=== PATIENT | female | born 1945 | race Caucasian/White ===

== ENCOUNTER 2016-10-28 09:16 | Inpatient (IN) | payer OTHER ==
[2016-10-25 15:05] VITALS: BMI 37.0
--- NOTE | 2016-10-25 15:41 | PAT Medication Instructions ---
Service Date Oct 25, 2016. Current Home Medication List Alprazolam (Alprazolam), 0.5 MG PO PRN Celecoxib (CeleBREX), 200 MG PO BID Cholecalciferol (Vitamin D3), 5,000 TAB PO QAM Duloxetine Hcl (Cymbalta), 60 MG PO QAM Ferrous Sulfate (Kp Ferrous Sulfate), 1 TAB PO BID Hydrocodone/Acetaminophen 7.5MG/325MG ([place] 7.5MG/325MG), 1 TAB PO PRN PRN for Pain Levothyroxine Sodium (Levothyroxine Sodium), 1 TAB PO QAM Liraglutide (Victoza), 1.8 ML INJ QAM Metformin Hcl (Glucophage), 1,000 MG PO QAM Metformin Hcl (Glucophage), 500 MG PO HS Metoprolol Tartrate (Lopressor) (Lopressor), 100 MG PO BID Oxycodone/Acetaminophen 5MG/325MG (Percocet 5MG/325MG), 1 TABLET PO Q4H PRN for Pain Pregabalin (Lyrica), 150 MG PO TID Quinapril Hcl (Quinapril Hcl), 1 TAB PO QAM Ranitidine (Zantac), 150 MG PO BID Zafirlukast (Zafirlukast), 20 MG PO BID [Calcium Zinc], 1 TAB PO HS [Oxybutynin], 0.5 TAB PO HS Medication Instructions For Your Scheduled Surgery - Check with surgeon for instructions: Celecoxib (CeleBREX), 200 MG PO BID Zafirlukast (Zafirlukast), 20 MG PO BID - Hold the following medications 48 hours prior to surgery: Metformin Hcl (Glucophage), 1,000 MG PO QAM Metformin Hcl (Glucophage), 500 MG PO HS - Hold the following medications the morning of surgery: Quinapril Hcl (Quinapril Hcl), 1 TAB PO QAM Ranitidine (Zantac), 150 MG PO BID Ferrous Sulfate (Kp Ferrous Sulfate), 1 TAB PO BID Cholecalciferol (Vitamin D3), 5,000 TAB PO QAM - Take the following medications the morning of surgery with a sip of water: Pregabalin (Lyrica), 150 MG PO TID Oxycodone/Acetaminophen 5MG/325MG (Percocet 5MG/325MG), 1 TABLET PO Q4H PRN for Pain (okay ot take up to 4 hours prior to surgery if needed) Hydrocodone/Acetaminophen 7.5MG/325MG ([place] 7.5MG/325MG), 1 TAB PO PRN PRN for Pain (okay ot take up to 4 hours prior to surgery if needed) Metoprolol Tartrate (Lopressor) (Lopressor), 100 MG PO BID Liraglutide (Victoza), 1.8 ML INJ QAM Levothyroxine Sodium (Levothyroxine Sodium), 1 TAB PO QAM Duloxetine Hcl (Cymbalta), 60 MG PO QAM Alprazolam (Alprazolam), 0.5 MG PO PRN - Take the following medications as scheduled the night before surgery: [Calcium Zinc], 1 TAB PO HS [Oxybutynin], 0.5 TAB PO HS Ranitidine (Zantac), 150 MG PO BID Pregabalin (Lyrica), 150 MG PO TID Oxycodone/Acetaminophen 5MG/325MG (Percocet 5MG/325MG), 1 TABLET PO Q4H PRN for Pain Hydrocodone/Acetaminophen 7.5MG/325MG ([place] 7.5MG/325MG), 1 TAB PO PRN PRN for Pain Metoprolol Tartrate (Lopressor) (Lopressor), 100 MG PO BID Ferrous Sulfate (Kp Ferrous Sulfate), 1 TAB PO BID Alprazolam (Alprazolam), 0.5 MG PO PRN Zafirlukast (Zafirlukast), 20 MG PO BID If you have any questions please call us at [phone] or [phone] or [phone]
[2016-10-25 16:21] LABS: BASO % 0.5 %; BASO ABS # 0.03 K/uL (0-0.2); COMPLETE YES; EOS % 5.9 %; HEMATOCRIT 30.4 % (37-47); IG% 0.4 %; LYMPH % 19.3 %; LYMPH ABS # 1.08 K/uL (1.2-3.4); MEAN CELL VOLUME 87.9 fL (80-100); MEAN CORPUSCULAR HEMOGLOBIN 26.6 pg (25-34); MEAN CORPUSCULAR HGB CONC 30.3 g/dl (32-36); MONO % 10.6 %; NEUT % 63.3 %; PLATELET COUNT 293 K/uL (130-400); RED BLOOD COUNT 3.46 M/uL (4.2-5.4); WHITE BLOOD COUNT 5.59 K/uL (4.8-10.8)
[2016-10-25 16:28] LABS: URINE APPEARANCE CLOUDY (CLEAR); URINE BILIRUBIN NEG (NEG); URINE COLOR DK YELLOW; URINE EPITHELIAL CELL AUTO >30 /lpf (0-5); URINE NITRITE POS (NEG); URINE SPECIFIC GRAVITY 1.027 (1.000-1.030); UROBILINOGEN NEG (NEG)
[2016-10-25 16:30] LABS: PROTHROMBIN TIME (PATIENT) 10.7 SECONDS (9.0-12.0)
--- NOTE | 2016-10-25 16:31 | DIAGNOSTIC IMAGING REPORT ---
CHEST PREADMISSION(PA/LAT) CLINICAL HISTORY: PAT preoperative evaluation COMPARISON STUDY: No previous studies for comparison. FINDINGS: The bones soft tissues and hemidiaphragms are normal. The cardiomediastinal silhouette is normal. The lungs are clear. The pulmonary vasculature is normal. IMPRESSION: Negative chest. The above report was generated using voice recognition software. It may contain grammatical, syntax or spelling errors. Electronically signed by: Brain Simmons M.D. 10/25/2016 4:30 PM Dictated Date/Time: 10/25/2016 4:30 PM
[2016-10-25 16:34] LABS: MANUAL MICROSCOPIC REQUIRED? NO; REVIEW REQ? YES
[2016-10-26 05:41] LABS: ESTIMATED AVERAGE GLUCOSE 171 mg/dl; HA1C FLAG Normal (Normal)
--- NOTE | 2016-10-26 17:02 | History and Physical ---
History & Physical Date Oct 26, 2016. Chief Complaint Left shoulder pain History of Present Illness The patient is a 71 year old female with complaints of Left shoulder pain. She was being treated conservatively for a periprosthetic fracture of her left humerus when there was displacement. This requires surgical intervention. She would like to proceed with a Left ORIF periprosthetic humerus fracture. Past Medical/Surgical History PMHx: 1. hypertension 2. asthma 3. COPD 4. Sleep Apnea 5. Anxiety 6. SOB walking upstairs 7. IDDM 8. Hypothyroidism 9. GERD 10. H/O kidney stones Additional History Hepatic Disease: No Endocrine Disorder: Yes Kidney Disease: No Hypertension: Yes Heart Disease: No Bleeding Tendencies: No Infectious Diseases: No Allergies Coded Allergies: Grape (Verified Allergy, Unknown, RASH, 10/25/16) Midazolam (Verified Allergy, Unknown, FEVER ITCHING, 10/25/16) [place] (Verified Allergy, Unknown, RASH, 10/25/16) Penicillins (Verified Allergy, Unknown, RASH, 10/25/16) Sulfamethoxazole w/Trimethoprim (Verified Allergy, Unknown, FEVER, 10/25/16) Home Medications Scheduled Alprazolam (Alprazolam), 0.5 MG PO PRN Celecoxib (CeleBREX), 200 MG PO BID Cholecalciferol (Vitamin D3), 5,000 TAB PO QAM Duloxetine Hcl (Cymbalta), 60 MG PO QAM Ferrous Sulfate (Kp Ferrous Sulfate), 1 TAB PO BID Levothyroxine Sodium (Levothyroxine Sodium), 1 TAB PO QAM Liraglutide (Victoza), 1.8 ML INJ QAM Metformin Hcl (Glucophage), 1,000 MG PO QAM Metformin Hcl (Glucophage), 500 MG PO HS Metoprolol Tartrate (Lopressor) (Lopressor), 100 MG PO BID Pregabalin (Lyrica), 150 MG PO TID Quinapril Hcl (Quinapril Hcl), 1 TAB PO QAM Ranitidine (Zantac), 150 MG PO BID Zafirlukast (Zafirlukast), 20 MG PO BID [Calcium Zinc], 1 TAB PO HS [Oxybutynin], 0.5 TAB PO HS Scheduled PRN Hydrocodone/Acetaminophen 7.5MG/325MG ([place] 7.5MG/325MG), 1 TAB PO PRN PRN for Pain Oxycodone/Acetaminophen 5MG/325MG (Percocet 5MG/325MG), 1 TABLET PO Q4H PRN for Pain Physical Examination Skin: warm/dry, no rash Eyes: normal inspection, EOMI ENT: normal ENT inspection Head: normocephalic, atraumatic Neck: supple, no adenopathy Respiratory/Chest: lungs clear, normal breath sounds Cardiovascular: regular rate, rhythm, no murmur Abdomen / GI: normal bowel sounds, non tender Extremities: + pertinent finding (Swelling, bruising and tenderness through the whole left shoulder. decreased ROM due to pain. ) Neurologic/Psych: alert, oriented x 3 Diagnosis Displaced Mid Shaft Humerus Fracture Plan of Treatment Patient is scheduled for a Left Open Reduction Internal Fixation periprosthetic humerus fracture. She has failed conservative treatment with bracing and immobilization. The fracture happened to displace which requires surgical intervention. She would like to proceed with a Left Open Reduction Internal Fixation periprosthetic humerus fracture. Risks and benefits to surgery were discussed that include but not limited to Pain, DVT, stiffness, Needed for revision surgery, blood loss, blood vessel damage, infection, nerve damage, anesthesia risks, and . She understands these risks and wishes to proceed. All questions were answered to her satisfaction.
[2016-10-28] VITALS (8 sets, daily range): BP systolic 100–160; BP diastolic 53–78; PULSE 60–82; TEMP 36.4–37.1; O2SAT 91–95; Ht 165.1 cm; Wt 102.6 kg
[~2016-10-28] VITALS: Ht 165.1 cm; Wt 102.6 kg
[~2016-10-28 09:16] MED LIST: ACCL20 PO; ATROPINE SULFATE 0.1 MG/ML 5ML SYR IV PRN; CALCIUM ZINC PO; CHOL1000 PO; CLB/200 PO; DULO60CA44 PO; EpHEDrine SULFATE INJ 50 MG/ML AMP IV PRN; FENTANYL CITRATE INJ 50 MCG/1 ML 2 ML VIAL IV PRN; FERR1TAB13 PO; GLC/500 PO; HYDR-3983 PO; LACTATED RINGER'S 1000ML 1,000 ML IV SCH; LEVO150T9 PO; LIRA18IN INJ; METO100T14 PO; ONDANSETRON INJ 2 MG/ML 2 ML VIAL IV PRN; OXYBUTYNIN PO; OXYC-57 PO; PREG1CAP70 PO; QUIN20TA30 PO; ROPIVACAINE 0.5% 5 MG/ML 30 ML VIAL ONE; VANCOMYCIN 1GM/270ML NSS IV SCH; XNX5 PO; ZNTT/150 PO
--- NOTE | 2016-10-28 10:22 | History & Physical Bridge Note ---
H&P Re-Evaluation Bridge Note: I have examined the patient, reviewed the History & Physical and in the interval since the performance of the History & Physical I have noted the following changes of clinical significance: No changes noted
[2016-10-28] MEDS ORDERED: NITR-5 PO (10:47)
[2016-10-28] MEDS ORDERED: FENTANYL CITRATE INJ 50 MCG/1 ML 2 ML VIAL ONE ×3 (12:09→16:52)
[2016-10-28] MEDS ORDERED: BACITRACIN 50000 UNIT VIAL ONE (14:06)
[2016-10-28] MEDS ORDERED: BUPIVACAINE/EPINEPHRINE 0.5% MPF 1:200,000 30 ML VIAL ONE (14:06)
[2016-10-28] MEDS ORDERED: LARYING-O-JET KIT (LTA) ONE ×2 (14:13)
[2016-10-28] MEDS ORDERED: EpHEDrine SULFATE 50MG/5ML SYR ONE (14:13)
[2016-10-28] MEDS ORDERED: PROPOFOL IV EMULSION 10 MG/ML 20 ML VIAL IV ONE ×2 (14:14→16:56)
[2016-10-28] MEDS ORDERED: ROCURONIUM BROMIDE 10 MG/ML 5 ML VIAL IV ONE (14:14)
[2016-10-28] MEDS ORDERED: LIDOCAINE HCL 2% 2 ML VIAL (20MG/ML) ONE (14:14)
[2016-10-28] MEDS ORDERED: ONDANSETRON INJ 2 MG/ML 2 ML VIAL ONE (14:14)
[2016-10-28] MEDS ORDERED: DEXAMETHASONE SOD INJ 4 MG/ML VIAL ONE (14:14)
[2016-10-28] MEDS ORDERED: GLYCOPYRROLATE INJ 0.2 MG/ML VIAL ONE (14:14)
[2016-10-28] MEDS ORDERED: NEOSTIGMINE METHYLSULFATE 5 MG/5 ML SYR ONE (14:14)
[2016-10-28] MEDS ORDERED: PHENYLEPHRINE 100MCG/ML 5ML SYR ONE (14:34)
[2016-10-28 16:32] LABS: HEMATOCRIT 28.1 % (37-47)
--- NOTE | 2016-10-28 16:58 | DIAGNOSTIC IMAGING REPORT ---
LEFT HUMERUS MIN 2 VIEW ROUTINE CLINICAL HISTORY: LT ORIF PROXIMAL fracture COMPARISON: None. DISCUSSION: Image since are utilized for operative reduction internal fixation of a humeral fracture IMPRESSION: Image intensifier assistance for a left humeral open reduction internal fixation The above report was generated using voice recognition software. It may contain grammatical, syntax or spelling errors. Electronically signed by: Brain Simmons M.D. 10/28/2016 4:57 PM Dictated Date/Time: 10/28/2016 4:56 PM
[2016-10-28] MEDS ORDERED: OXYCODONE HCL IR 5 MG TAB (IMMEDIATE RELEASE) PO PRN (17:15)
[2016-10-28] MEDS ORDERED: ALPRAZOLAM 0.5 MG TAB PO PRN (17:15)
[2016-10-28] MEDS ORDERED: MoRPHine SULFATE 2 MG/ML CARP IV PRN (17:15)
[2016-10-28] MEDS ORDERED: ALUMINUM/MAGNESIUM/SIMETH (MAALOX MAX) 30 ML UDC PO PRN (17:15)
[2016-10-28] MEDS ORDERED: ZOLPIDEM TARTRATE 5 MG TAB PO PRN (17:15)
[2016-10-28] MEDS ORDERED: BISACODYL 10 MG SUPP PR PRN (17:15)
[2016-10-28] MEDS ORDERED: SOD PHOSPHATE/SOD BIPHOSPHATE ENEMA 132 ML BTL PR PRN (17:15)
[2016-10-28] MEDS ORDERED: MAGNESIUM HYDROXIDE SUSP 30 ML UDC PO PRN (17:15)
[2016-10-28] MEDS ORDERED: ONDANSETRON INJ 2 MG/ML 2 ML VIAL IV PRN (17:15)
--- NOTE | 2016-10-28 17:15 | [facility] Operative Report ---
Operative Report Operative Date Oct 28, 2016. Pre-Operative Diagnosis Left Displaced Mid Shaft Periprosthetic Humerus Fracture Post-Operative Diagnosis Left Displaced Mid Shaft Periprosthetic Humerus Fracture Procedure(s) Performed Left Humerus Periprosthetic Fracture Open Reduction Internal Fixation Surgeon Dr. Hurley [employer] Manager Surgeon(s) Catracho Roa PA-C Estimated Blood Loss 250ml Findings above Specimens None per surgeon Drains 0 Anesthesia geta Complication(s) None Disposition Recovery Room / PACU Indications 71-year-old female who had previously undergone a left total shoulder arthroplasty. She sustained a fall with a displaced periprosthetic humerus fracture. Attempt at closed treatment with septations and bracing failed and she had unacceptable amount of displacement. Failing this she wishes to proceed with open reduction and internal fixation. Description of Procedure Risks, benefits and alternatives to surgery including, but not limited to, infection DVT, pain, stiffness, need for revision surgery, failure to relieve all symptoms, damage to blood vessels, damage to nerves, risk of anesthesia were discussed with the patient and they wished to proceed. The patient was identified. Laterality was confirmed and marked. The patient received a preoperative antibiotic as well as an interscalene block. They were transferred to the operating room and placed in the supine position and induced into general endotracheal anesthesia per the anesthesia staff. She was then transferred to the prone position all pressure points were well-padded. We confirmed that we're able to achieve proper visualization of her fracture under fluoroscopy the arm was then prepped and draped in the usual standard manner with ChloraPrep. I made a posterior approach to the humerus sharply incising through the skin then utilizing Bovie electrocautery to achieve hemostasis. I approached the humerus through a triceps mobilization approach developing the lateral window. She had torn through a good portion of the triceps in this region. I mobilized the tissues both proximally as well as distally and identified the fracture site. I'd mobilize the tissues more distally and then identified the radial nerve. Radial nerve was identified and protected throughout the case with a [place] drain. The fracture had a significant amount of interposed soft tissue and early callus forming that was excised using combination of curet and rongeur. I then reduced the fracture with a combination of pointed as well as claw type reduction clamps. Once I was satisfied with reduction placed a lag screw from posterior to anterior direction. We then placed an additional lag screw from a lateral to medial type direction. We confirmed we maintained reduction with fluoroscopy views. We then used a Synthes 12 hole narrow large frag locking plate. I mobilized the plate slightly more medially to try to get some bicortical screws around the stem of her humerus stem. I placed a nonlocking screw distally compressing the plate to bone and then placed another nonlocking screw proximally as able to bypass the stem. We did positioning of the plate and good reduction of the fracture. I then placed locking screw just distal to the stem of the prosthesis in a bicortical fashion. 2 additional bicortical screws were able to be placed proximally bypassing the stem. Additional locking screws were placed in the distal aspect of the plate. I confirmed we are able to maintain reduction of the fracture and confirmed screw lengths on fluoroscopy. The radial nerve was confirmed to be stable and intact and was in position over the region where the 2 lag screws are. I thoroughly irrigated the wound. Deep tissues were anesthetized with Marcaine. The deep subcutaneous tissues closed with interrupted #1 Vicryl suture. The subcutaneous tissue was closed with interrupted 2-0 Vicryl suture. The skin was closed with otf. A sterile dressing was applied. A sling was placed. All needle and sponge counts were correct at the end of the procedure. The patient was transferred to the PACU in stable condition without apparent complication. The PA-C was necessary for assistance with procedure for assistance in positioning, prepping, draping, retraction and closure. I attest to the content of the Intraoperative Record and any orders documented therein. Any exceptions are noted below.
[2016-10-28] MEDS ORDERED: NovoLIN-R INSULIN PER UNIT CHARGE ONE (17:32)
--- NOTE | 2016-10-28 18:08 | Anesthesiology Progress Note ---
Anesthesia Post Op Note Date & Time Oct 28, 2016 at 18:07 Vital Signs Pain Intensity: 0 Vital Signs Past 12 Hours Date Time Temp Pulse Resp B/P (MAP) Pulse Ox O2 Delivery O2 Flow Rate FiO2 10/28/16 17:49 36.4 69 22 133/61 93 Nasal Cannula 3 10/28/16 17:46 70 26 10/28/16 17:46 70 26 93 10/28/16 17:45 130/61 10/28/16 17:41 77 29 92 10/28/16 17:41 70 29 10/28/16 17:40 71 30 10/28/16 17:40 70 30 127/77 92 10/28/16 17:35 70 26 136/59 93 10/28/16 17:35 70 26 10/28/16 17:30 71 26 10/28/16 17:30 71 26 142/52 89 10/28/16 17:25 71 23 10/28/16 17:25 69 23 141/61 96 10/28/16 17:20 66 20 164/59 97 10/28/16 17:20 66 20 10/28/16 17:20 36.4 67 20 164/59 97 Mask 10 10/28/16 10:00 36.5 60 18 134/78 95 Room Air
[2016-10-28] MEDS: OXYCODONE/ACETAMINOPHEN 5-325 TAB PO PRN (19:47)
[2016-10-28] MEDS ORDERED: DEXTROSE 50% 50 ML SYR IV PRN (20:30)
[2016-10-28] MEDS ORDERED: GLUCAGON FOR INJ 1 MG VIAL SQ PRN (20:30)
[2016-10-28] MEDS ORDERED: GLUCOSE 40% GEL 15 GM TUBE PO PRN (20:30)
[2016-10-28] MEDS ORDERED: GLUCOSE 10 TABS/TUBE PO PRN (20:30)
[2016-10-28] MEDS ORDERED: CALCIUM ZINC PO SCH (21:00)
[2016-10-28] MEDS ORDERED: CeleBREX 200 MG CAP PO SCH (21:00)
[2016-10-28] MEDS ORDERED: SENNA 8.6 MG TAB PO SCH (21:00)
[2016-10-28] MEDS: POTASSIUM CHLORIDE INJ 10 MEQ in SODIUM CHLORIDE 0.9% 1000ML 1,000 ML IV SCH (21:26)
[2016-10-28] MEDS: RANITIDINE HCL 150 MG TAB PO SCH (21:27)
[2016-10-28] MEDS: DOCUSATE SODIUM 100 MG CAP PO SCH (21:28)
[2016-10-28] MEDS: INSULIN ASPART 100 UNITS/ML 3 ML PEN SC SCH (21:32)
[2016-10-28] MEDS: METOPROLOL TARTRATE 100 MG TAB PO SCH (21:41)
[2016-10-28] MEDS: PREGABALIN 150 MG CAP PO SCH (21:51)
[2016-10-28] MEDS: OXYCODONE HCL 10 MG TABCR (OXYCONTIN) PO SCH (21:51)
[2016-10-28] MEDS ORDERED: NURSING VERBAL MED ORDER ONE (22:00)
[2016-10-28] MEDS ORDERED: PHARMACY GLYCEMIC MGMT CONSULT PRN (23:09)
[2016-10-28] MEDS ORDERED: INSULIN IV INFUSION PROTOCOL SCH (23:15)
[2016-10-28] MEDS ORDERED: INSULIN REGULAR 10 UNITS in SYRINGE 9.9 ML IV SCH (23:30)
[2016-10-28] MEDS ORDERED: LANTUS PER UNIT CHARGE SQ STA (23:34)
[2016-10-29] MEDS ORDERED: VANCOMYCIN INJ 1,500 MG in SODIUM CHLORIDE 0.9% 500ML 500 ML IV SCH ×2
[2016-10-29] MEDS ORDERED: VICTOZA~ORDER AWAITING ACTION SCH
[2016-10-29] MEDS ORDERED: INSULIN ASPART 100 UNITS/ML 3 ML PEN SC SCH ×2 (01:00→04:00)
[2016-10-29] MEDS ORDERED: INSULIN ASPART 100 UNITS/ML 3 ML PEN SC STA (01:03)
[2016-10-29 01:26] LABS: BUN/CREATININE RATIO 20.4 (10-20); CALCIUM 7.1 mg/dl (8.5-10.1); CREATININE 1.4 mg/dl (0.60-1.20); MAGNESIUM 1.3 mg/dl (1.8-2.4); POTASSIUM 3.4 mmol/L (3.5-5.1)
[2016-10-29] MEDS ORDERED: MAGNESIUM SULFATE 1GM / D5W 1 GM in PREMIXED IN D5W 100 ML IV STA (01:55)
[2016-10-29] MEDS ORDERED: POTASSIUM CHLORIDE 10 MEQ TABCR PO STA (02:01)
--- NOTE | 2016-10-29 02:06 | Medical Consult ---
Consultation Date of Consultation: Oct 29, 2016. Attending Physician: Wilmer Hurley M.D. Reason for Consultation: medical management History of Present Illness Patient is a s 71 year old female with history of DM 2, HTN, Hypothyroidism, Anxiety, Asthma/COPD, BENTLEY presenting with left arm pain. She has been treated conservatively for periprosthetic fracture of the left humerus, but was continuing to have pain, hence surgical intervention was recommended. Today patient underwent ORIF of the Left Humerus Fracture under general anesthesia with estimated blood loss of 250cc. This evening, patient's blood glucose was elevated at 370. Insulin Aspart 10 units was given per Insulin Sliding Scale, however, blood glucose still was elevated at 390 upon recheck 2 hours later. Glycemic Control Consult placed, and Insulin Drip was ordered. On exam, patient is sleeping but easily rousable. She was wearing her CPAP. Denies shortness of breath, chest pain, nausea, dizziness. Pain adequately controlled. Denies other symptoms. Family History Non contributory Social History Smoking Status: Never Smoker Alcohol Use: none Drug Use: none Allergies Coded Allergies: Grape (Verified Allergy, Unknown, RASH, 10/28/16) Midazolam (Verified Allergy, Unknown, FEVER ITCHING, 10/28/16) [place] (Verified Allergy, Unknown, RASH, 10/28/16) Penicillins (Verified Allergy, Unknown, RASH, 10/28/16) Sulfamethoxazole w/Trimethoprim (Verified Allergy, Unknown, FEVER, 10/28/16) Current Inpatient Medications Current Inpatient Medications Medications (Trade) Dose Ordered Sig/Alvaro Route Start Time Stop Time Status Last Admin Dose Admin Alprazolam (Xanax Tab) 0.5 mg DAILY PRN PO 10/28/16 17:15 11/27/16 17:14 Celecoxib (CeleBREX CAP) 200 mg BID PO 10/28/16 21:00 11/27/16 20:59 10/28/16 21:28 200 MG Duloxetine HCl (Cymbalta Cap) 60 mg QAM PO 10/29/16 09:00 11/28/16 08:59 Levothyroxine Sodium (Synthroid Tab) 150 mcg DAILYBB PO 10/29/16 06:00 11/28/16 05:59 Metoprolol Tartrate (Lopressor Tab) 100 mg BID PO 10/28/16 21:00 11/27/16 20:59 10/28/16 21:41 100 MG Pregabalin (Lyrica Cap) 150 mg TID PO 10/28/16 21:00 11/27/16 20:59 10/28/16 21:51 150 MG Ranitidine HCl (zANTac TAB) 150 mg BID PO 10/28/16 21:00 11/27/16 20:59 10/28/16 21:27 150 MG Ferrous Sulfate (Feosol Tab) 325 mg BIDM PO 10/29/16 08:30 11/28/16 08:29 Miscellaneous Information (Order Awaiting Action) 1 ea QS N/A 10/29/16 00:00 11/28/16 00:00 Enalapril Maleate (Vasotec Tab) 20 mg QAM PO 10/29/16 09:00 11/28/16 08:59 Miscellaneous Information (Order Awaiting Action) 1 ea QS N/A 10/29/16 00:00 11/28/16 00:00 Potassium Chloride 10 meq/ Sodium Chloride 1,005 ml @ 100 mls/hr Q10H3M IV 10/28/16 19:30 11/27/16 19:29 10/28/16 21:26 100 MLS/HR Vancomycin HCl 1500 mg/Sodium Chloride 530 ml @ 200 mls/hr Q12H IV 10/29/16 00:00 10/29/16 02:38 10/28/16 23:56 200 MLS/HR Oxycodone/ Acetaminophen (Percocet 5-325mg Tab) 1-2 TABLETS 1 TABLET ... Q6H PRN PO 10/28/16 17:15 11/11/16 17:14 10/28/16 19:47 1 TAB Oxycodone HCl (Oxycontin Tab) 10 mg Q12 PO 10/28/16 21:00 11/11/16 20:59 10/28/16 21:51 10 MG Morphine Sulfate (MoRPHine SULFATE INJ) 2 mg Q2H PRN IV 10/28/16 17:15 11/11/16 17:14 Magnesium Hydroxide (Milk Of Magnesia Susp) 30 ml Q6H PRN PO 10/28/16 17:15 11/27/16 17:14 Bisacodyl (Dulcolax Supp) 10 mg DAILY PRN [place] 10/28/16 17:15 11/27/16 17:14 Sodium Biphosphate/ Sodium Phosphate (Fleet Enema) 132 ml DAILY PRN [place] 10/28/16 17:15 11/27/16 17:14 Senna (Senokot Tab) 17.2 mg HS PO 10/28/16 21:00 11/27/16 20:59 10/28/16 21:29 17.2 MG Docusate Sodium (coLACE CAP) 100 mg BID PO 10/28/16 21:00 11/27/16 20:59 10/28/16 21:28 100 MG Diphenhydramine HCl (Benadryl Cap) 25 mg Q8H PRN PO 10/28/16 17:15 11/27/16 17:14 Al Hydrox/Mg Hydrox/Simethicone (Maalox Max Susp) 15 ml Q4H PRN PO 10/28/16 17:15 11/27/16 17:14 Zolpidem Tartrate (Ambien Tab) 5 mg HSZ PRN PO 10/28/16 17:15 11/27/16 17:14 Multivitamins (Multivitamin Tab) 1 tab QAM PO 10/29/16 09:00 11/28/16 08:59 Ondansetron HCl (Zofran Inj) 4 mg Q6H PRN IV 10/28/16 17:15 11/27/16 17:14 Pantoprazole Sodium (Protonix Tab) 40 mg QAM PO 10/29/16 09:00 11/28/16 08:59 Insulin Aspart (novoLOG ASPART) SLIDING SCALE If C... ACHS SC 10/28/16 21:00 11/27/16 20:59 10/28/16 21:32 10 UNITS Glucose (Glucose 40% Gel) 15-30 GRAMS 15 GRAMS... UD PRN PO 10/28/16 20:30 11/27/16 20:29 Glucose (Glucose Chew Tab) 4-8 Tablets 4 Tabl... UD PRN PO 10/28/16 20:30 11/27/16 20:29 Dextrose (Dextrose 50% 50ML Syringe) 25-50ML OF 50% DW IV FOR... UD PRN IV 10/28/16 20:30 11/27/16 20:29 Glucagon (Glucagon Inj) 1 mg UD PRN SQ 10/28/16 20:30 11/27/16 20:29 Oxybutynin Chloride (Ditropan Tab) 2.5 mg HS PO 10/29/16 21:00 11/28/16 20:59 Miscellaneous Information (Consult Glycemic Management Pharmacy) 1 ea DAILY PRN N/A 10/28/16 23:09 11/27/16 23:08 Insulin Aspart (novoLOG ASPART) SLIDING SCALE If C... 0400 SC 10/29/16 04:00 10/29/16 04:01 Review of Systems Constitutional- no fever; no weight loss Eyes- no acute visual changes ENT- no sinus drainage; no pharyngitis Pulmonary- no cough, no wheezing, no shortness of breath Cardiac- no chest pain, no palpitations, no orthopnea, no dependent edema GI- no nausea, no vomiting, no diarrhea, no melena, no hematochezia - no dysuria, no hematuria Musculoskeletal- (+) as noted above Derm- no rashes, no new skin lesions, no changing skin lesions Hematologic- no unusual bruising, no unusual bleeding Lymphatics- no adenopathy Endocrine- no polyuria or polydipsia; no heat or cold intolerance Neuro- no headaches, no focal neurologic symptoms Psych- no anxiety, no depression Physical Exam Date Time Temp Pulse Resp B/P (MAP) Pulse Ox O2 Delivery O2 Flow Rate FiO2 10/28/16 23:12 36.4 77 16 125/69 (87) 91 CPAP 10/28/16 21:45 37.0 82 18 125/71 (89) 93 Nasal Cannula 3.0 Humidified Oxygen 10/28/16 20:45 36.8 79 18 100/58 (72) 94 Nasal Cannula 3.0 Humidified Oxygen 10/28/16 19:45 36.7 73 16 160/71 (100) 92 Humidified Oxygen 3.0 10/28/16 19:15 36.7 72 16 153/53 (86) 91 Nasal Cannula 3.0 10/28/16 19:00 92 Nasal Cannula 3.0 10/28/16 19:00 92 Nasal Cannula 3.0 10/28/16 18:45 37.1 69 16 136/65 (88) 92 Nasal Cannula 3.0 10/28/16 17:49 36.4 69 22 133/61 93 Nasal Cannula 3 10/28/16 17:46 70 26 10/28/16 17:46 70 26 93 10/28/16 17:45 130/61 10/28/16 17:41 77 29 92 10/28/16 17:41 70 29 10/28/16 17:40 71 30 10/28/16 17:40 70 30 127/77 92 10/28/16 17:35 70 26 136/59 93 10/28/16 17:35 70 26 10/28/16 17:30 71 26 10/28/16 17:30 71 26 142/52 89 10/28/16 17:25 71 23 10/28/16 17:25 69 23 141/61 96 10/28/16 17:20 66 20 164/59 97 10/28/16 17:20 66 20 10/28/16 17:20 36.4 67 20 164/59 97 Mask 10 10/28/16 10:00 36.5 60 18 134/78 95 Room Air General Appearance: WD/WN, no apparent distress Head: normocephalic, atraumatic Eyes: normal inspection, EOMI, sclerae normal ENT: normal ENT inspection, hearing grossly normal Neck: supple, no adenopathy, thyroid normal, no JVD, trachea midline Respiratory/Chest: chest non-tender, lungs clear, normal breath sounds, no respiratory distress, no accessory muscle use Cardiovascular: regular rate, rhythm, no edema, no JVD, no murmur Abdomen/GI: normal bowel sounds, non tender, soft Back: normal inspection, no CVA tenderness Extremities/Musculoskelatal: no calf tenderness, + pertinent finding (left arm : sling in place) Neurologic/Psych: manager php II-XII nml as tested, no motor/sensory deficits, alert, normal mood/affect, oriented x 3 Skin: normal color, warm/dry, no rash Laboratory Results Last 24 Hours Test 10/28/16 09:43 10/28/16 14:15 10/28/16 17:21 10/28/16 20:52 Bedside Glucose 175 mg/dl 285 mg/dl 370 mg/dl Hemoglobin 8.8 g/dL Hematocrit 28.1 % Test 10/28/16 22:40 10/29/16 00:37 10/29/16 00:57 Bedside Glucose 397 mg/dl 253 mg/dl Sodium Level 138 mmol/L Potassium Level 3.4 mmol/L Chloride Level 106 mmol/L Carbon Dioxide Level 25 mmol/L Anion Gap 7.0 mmol/L Blood Urea Nitrogen 29 mg/dl Creatinine 1.40 mg/dl Est Creatinine Clear Calc Drug Dose 42.5 ml/min Estimated GFR () 43.1 Estimated GFR (Non- 37.2 BUN/Creatinine Ratio 20.4 Random Glucose 226 mg/dl Calcium Level 7.1 mg/dl Magnesium Level 1.3 mg/dl Assessment & Plan Patient is a s 71 year old female with history of DM 2, HTN, Hypothyroidism, Anxiety, Asthma/COPD, BENTLEY presenting with left arm pain. s/p ORIF LEFT HUMERAL FRACTURE - Post op Day 0 - main issue is hyperglycemia received Dexamethasone 8mg earlier this afternoon - Insulin drip instituted usual Victoza and Metformin on HOLD for now Pharmacy consulted for Glycemic Control MILD CREA ELEVATION - no baseline available - crea 1.4 GFR 40s - IV NSS increased to 125cc/hr - d/c Celebrex and KHADIJAH I pharmacy consulted for Vanco dosing - may need to obtain records from PCP for determine baseline renal function HYPOKALEMIA AND HYPOMAGNESEMIA - PO K and IV Mg ordered - monitor DM 2 - management per #1 HTN - continue Metoprolol hold KHADIJAH I for elevated crea HYPOTHYROIDISM - continue Levothyroxine ANXIETY - on Cymbalta ASTHMA/COPD - stable BENTLEY - on CPAP at HS DVT prophylaxis per Ortho S[facility] Thank you for this consultation. We will follow the patient with you during their hospital stay. You can reach a member of the [facility] Hospitalist Team 12/09 via pager @ .
[2016-10-29] MEDS ORDERED: VANCOMYCIN CONSULT ACTIVE PRN (02:27)
[2016-10-29] MEDS ORDERED: VANCOMYCIN INJ 2,500 MG in SODIUM CHLORIDE 0.9% 500ML 500 ML IV STA (02:30)
[2016-10-29] MEDS ORDERED: VANCOMYCIN INJ 1,000 MG in SODIUM CHLORIDE 0.9% 250ML 250 ML IV SCH (03:00)
[2016-10-29 04:06] VITALS: BP 121/71; PULSE 59; TEMP 36.8; O2SAT 92
[2016-10-29] MEDS: POTASSIUM CHLORIDE INJ 10 MEQ in SODIUM CHLORIDE 0.9% 1000ML 1,000 ML IV SCH ×2 (05:55→12:52)
[2016-10-29] MEDS ORDERED: LEVOTHYROXINE 150 MCG TAB PO SCH (06:00)
[2016-10-29 07:54] VITALS: BP 118/71; PULSE 64; TEMP 36.6; O2SAT 92
[2016-10-29 07:58] LABS: HEMATOCRIT 26.3 % (37-47); MEAN CELL VOLUME 85.9 fL (80-100); MEAN CORPUSCULAR HEMOGLOBIN 27.1 pg (25-34); MEAN CORPUSCULAR HGB CONC 31.6 g/dl (32-36); MEAN PLATELET VOLUME 9.5 fL (7.4-10.4); PLATELET COUNT 274 K/uL (130-400); RED BLOOD COUNT 3.06 M/uL (4.2-5.4); WHITE BLOOD COUNT 9.69 K/uL (4.8-10.8)
[2016-10-29 08:08] LABS: PROTHROMBIN TIME (PATIENT) 11.1 SECONDS (9.0-12.0)
[2016-10-29] MEDS ORDERED: METFORMIN HCL 500 MG TAB PO SCH ×2 (08:30→17:45)
[2016-10-29] MEDS ORDERED: FERROUS SULFATE 325 MG TAB PO SCH (08:30)
[2016-10-29] MEDS ORDERED: FERROUS GLUCONATE 324 MG TAB PO SCH (08:30)
[2016-10-29 08:46] LABS: BUN/CREATININE RATIO 25.5 (10-20); CALCIUM 8.4 mg/dl (8.5-10.1); CREATININE 1.3 mg/dl (0.60-1.20); POTASSIUM 4.5 mmol/L (3.5-5.1)
[2016-10-29] MEDS: OXYCODONE HCL 10 MG TABCR (OXYCONTIN) PO SCH (08:59)
[2016-10-29] MEDS: RANITIDINE HCL 150 MG TAB PO SCH (08:59)
[2016-10-29] MEDS: DOCUSATE SODIUM 100 MG CAP PO SCH (08:59)
[2016-10-29] MEDS: PREGABALIN 150 MG CAP PO SCH ×2 (08:59→14:04)
[2016-10-29] MEDS ORDERED: ENALAPRIL MALEATE 10 MG TAB PO SCH (09:00)
[2016-10-29] MEDS ORDERED: OXYBUTYNIN CHLORIDE 5 MG TAB PO SCH ×2 (09:00→21:00)
[2016-10-29] MEDS ORDERED: DULOXETINE HCL 60 MG CAP PO SCH (09:00)
[2016-10-29] MEDS ORDERED: MULTIVITAMIN TAB PO SCH (09:00)
[2016-10-29] MEDS ORDERED: LANTUS PER UNIT CHARGE SQ ONE ×2 (09:00→13:00)
[2016-10-29] MEDS ORDERED: PANTOprazole SOD 40 MG TAB PO SCH (09:00)
[2016-10-29] MEDS: METOPROLOL TARTRATE 100 MG TAB PO SCH (09:01)
[2016-10-29] MEDS: INSULIN ASPART 100 UNITS/ML 3 ML PEN SC SCH ×2 (09:06→13:16)
--- NOTE | 2016-10-29 09:34 | Pharmacy Progress Note ---
Pharmacy Antibiotic Consult Date of Service: Oct 29, 2016. Pharmacy Dosing Scope Pharmacy is consulted to initiate vancomycin IV dosing therapy, order appropriate labs and adjust drug dose/frequency. Subjective The patient is a 71 year old female admitted on Oct 28, 2016 at 17:10. Objective Height (Feet): 5 Height (Inches): 5 Weight (Kilograms): 102.600 Lab Results (24hrs): Test 10/28/16 14:15 10/29/16 00:37 10/29/16 04:04 10/29/16 07:40 Hemoglobin 8.8 g/dL (12.0-16.0) 8.3 g/dL (12.0-16.0) Hematocrit 28.1 % (37-47) 26.3 % (37-47) Sodium Level 138 mmol/L (136-145) 135 mmol/L (136-145) Potassium Level 3.4 mmol/L (3.5-5.1) 4.5 mmol/L (3.5-5.1) Chloride Level 106 mmol/L (98-107) 103 mmol/L (98-107) Carbon Dioxide Level 25 mmol/L (21-32) 26 mmol/L (21-32) Anion Gap 7.0 mmol/L (3-11) 6.0 mmol/L (3-11) Blood Urea Nitrogen 29 mg/dl (7-18) 33 mg/dl (7-18) Creatinine 1.40 mg/dl (0.60-1.20) 1.30 mg/dl (0.60-1.20) Est Creatinine Clear Calc Drug Dose 42.5 ml/min 45.8 ml/min Estimated GFR () 43.1 47.1 Estimated GFR (Non- 37.2 40.7 BUN/Creatinine Ratio 20.4 (10-20) 25.5 (10-20) Random Glucose 226 mg/dl (70-99) 184 mg/dl (70-99) Calcium Level 7.1 mg/dl (8.5-10.1) 8.4 mg/dl (8.5-10.1) Magnesium Level 1.3 mg/dl (1.8-2.4) Bedside Glucose 190 mg/dl (70-90) White Blood Count 9.69 K/uL (4.8-10.8) Red Blood Count 3.06 M/uL (4.2-5.4) Mean Corpuscular Volume 85.9 fL (80-100) Mean Corpuscular Hemoglobin 27.1 pg (25-34) Mean Corpuscular Hemoglobin Concent 31.6 g/dl (32-36) RDW Standard Deviation 50.5 fL (36.4-46.3) RDW Coefficient of Variation 16.1 % (11.5-14.5) Platelet Count 274 K/uL (130-400) Mean Platelet Volume 9.5 fL (7.4-10.4) Prothrombin Time 11.1 SECONDS (9.0-12.0) Prothromb Time International Ratio 1.0 (0.9-1.1) Test 10/29/16 07:51 Bedside Glucose 187 mg/dl (70-90) Assessment & Plan Assessment: Patient is a 71 yo female post ORIF of the Left Humerus Fracture Received 1000 mg vancomycin dose pre op and 2500 mg load post op Plan: Maintenance dose 1000 mg q18H PK: SCr 1.3, CrCl 45.8, Ke 0.042, T1/2 16 hrs Less than traditional dose and extended interval for possible accumulation in patient with BMI > 35 Goal trough level estimated 15-20 mcg/mL Trough level ordered for 11/01 @ 0530 Pharmacy will continue to follow and will adjust dose/frequency as necessary. Thank you
--- NOTE | 2016-10-29 10:50 | Pharmacy Progress Note ---
Glycemic Control Intl Consult Date of Service Oct 29, 2016. Scope Glycemic Pharmacist consulted by Dr Arteaga on 10/29/16 for glycemic control and to write orders per [facility] inpatient glycemic control protocol Objective Weight (Kilograms): 102.600 Accuchecks BSG (last 24hrs): Test 10/28/16 17:21 10/28/16 20:52 10/28/16 22:40 10/29/16 00:37 Bedside Glucose 285 mg/dl (70-90) 370 mg/dl (70-90) 397 mg/dl (70-90) Random Glucose 226 mg/dl (70-99) Test 10/29/16 00:57 10/29/16 04:04 10/29/16 07:40 10/29/16 07:51 Bedside Glucose 253 mg/dl (70-90) 190 mg/dl (70-90) 187 mg/dl (70-90) Random Glucose 184 mg/dl (70-99) Laboratory Data (last 24hrs) Test 10/29/16 00:37 10/29/16 07:40 Anion Gap 7.0 mmol/L 6.0 mmol/L BUN/Creatinine Ratio 20.4 25.5 Blood Urea Nitrogen 29 mg/dl 33 mg/dl Creatinine 1.40 mg/dl 1.30 mg/dl Potassium Level 3.4 mmol/L 4.5 mmol/L Sodium Level 138 mmol/L 135 mmol/L White Blood Count 9.69 K/uL HbA1c Test 10/25/16 15:41 Hemoglobin A1c 7.6 % (4.5-5.6) H Recent Pertinent Medications Outpatient Anti-diabetic Regimen: * Victoza 1.8 mg qAM * Metformin 1 gm qAM, 500 mg qPM The patient is currently receiving: * Basal insulin: Lantus 12 units x 1 last evening * Correctional Insulin: Novolog Correction per scale ACHS Goal Range: Low 140 mg/dL - High 180 mg/dL Correction Factor: 20 mg/dL/unit * Prandial insulin: Per carb ratio of 1 unit per 10 grams CHO consumed * Oral Agents: None at this time Risk Factors for Insulin Resistance: * Steroids: Decadron 8 mg IV intraop yesterday * Recent Surgery: POD #1 s/p shoulder surgery * Diet: type 2 diabetes Assessment & Plan ASSESSMENT: * 71 y/o female admitted for L shoulder surgery s/p fracture. * Pt is maintained on oral antidiabetic agents + GLP-1 agent as an outpatient * Oral agents are not recommended for inpatient use d/t drug interactions, changing PO intake, and difficulty titrating for acute hyper/hypoglycemia. ADA recommends re-initiating outpatient oral agents 1-2 days prior to discharge if/ when appropriate if they were held on admission. * Will hold oral agents for admission and utilize SQ basal bolus insulin regimen which is the recommended regimen for inpatient glycemic control. * Patient's BSGs were significantly elevated last night due to a dose of Decadron intraop. An insulin drip was going to be initiated but nursing was concerned about staffing requirements so the overnight pharmacist gave a dose of Lantus in addition to an IV dose of Regular and the BSGs improved down to < 200 mg/dL this AM. * Decadron should be almost worn off at this point. Will plan to give an additional dose of Lantus based upon patient's weight and stress of 1. * Will adjust Novolog parameters to insulin calc estimates using patient's wt and stress level of 2 PLAN FOR INPATIENT GLYCEMIC CONTROL: * Give additional one time dose of 10 units Lantus this AM * Continue Novolog ACHS * TIGHTEN goal to 110-140 * Loosen CF slightly to 25 * TIGHTEN CR to 8 * Can plan to resume metformin tomorrow as long as no contraindications are present DISCHARGE RECOMMENDATIONS: * A1c acceptable, okay to resume outpatient regimen on discharge Thank you.
--- NOTE | 2016-10-29 11:21 | Orthopedic Progress Note ---
Orthopedic Progress Note Date of Service Oct 29, 2016. Subjective Post OP Day: 1 Reports: feeling well, Denies: complaints Objective dressing C/D/I, A&O x3, CMS intact Date Time Temp Pulse Resp B/P (MAP) Pulse Ox O2 Delivery O2 Flow Rate FiO2 10/29/16 07:54 36.6 64 16 118/71 (87) 92 Room Air 10/29/16 07:45 Room Air 10/29/16 04:06 36.8 59 16 121/71 (88) 92 CPAP 10/29/16 00:00 CPAP 10/28/16 23:12 36.4 77 16 125/69 (87) 91 CPAP 10/28/16 21:45 37.0 82 18 125/71 (89) 93 Nasal Cannula 3.0 Humidified Oxygen 10/28/16 20:45 36.8 79 18 100/58 (72) 94 Nasal Cannula 3.0 Humidified Oxygen 10/28/16 19:45 36.7 73 16 160/71 (100) 92 Humidified Oxygen 3.0 10/28/16 19:15 36.7 72 16 153/53 (86) 91 Nasal Cannula 3.0 10/28/16 19:00 92 Nasal Cannula 3.0 10/28/16 19:00 92 Nasal Cannula 3.0 10/28/16 18:45 37.1 69 16 136/65 (88) 92 Nasal Cannula 3.0 10/28/16 17:49 36.4 69 22 133/61 93 Nasal Cannula 3 10/28/16 17:46 70 26 10/28/16 17:46 70 26 93 10/28/16 17:45 130/61 10/28/16 17:41 77 29 92 10/28/16 17:41 70 29 10/28/16 17:40 71 30 10/28/16 17:40 70 30 127/77 92 10/28/16 17:35 70 26 136/59 93 10/28/16 17:35 70 26 10/28/16 17:30 71 26 10/28/16 17:30 71 26 142/52 89 10/28/16 17:25 71 23 10/28/16 17:25 69 23 141/61 96 10/28/16 17:20 66 20 164/59 97 10/28/16 17:20 66 20 10/28/16 17:20 36.4 67 20 164/59 97 Mask 10 Laboratory Results 24 Hours: Test 10/28/16 14:15 10/29/16 07:40 Hematocrit 28.1 % 26.3 % Hemoglobin 8.8 g/dL 8.3 g/dL Prothromb Time International Ratio 1.0 Prothrombin Time 11.1 SECONDS Assessment & Plan Assessment: POD 1 s/p ORIF Left Periprosthetic Humerus Fx Plan: Plan for dc to home today if ok with Med Service Radial nerve intact. Patient seen and examined, agree with above. Inhouse Planning Pain Management: Percocet, Oxycontin DVT Prophylaxis: TEDs, SCDs Discharge Planning Discharge Planning: home
[2016-10-29 11:29] VITALS: BP 136/76; PULSE 68; O2SAT 97
[2016-10-29] MEDS ORDERED: OXYSR10 PO (11:33)
[2016-10-29] MEDS ORDERED: ASPEC325 PO (11:33)
[2016-10-29] MEDS ORDERED: OXYC-57 PO (11:33)
--- NOTE | 2016-10-29 11:50 | Discharge Instructions ---
Discharge Instructions Date of Service Oct 29, 2016. Admission Reason for Admission: Left Gladis Prosthetic Humerus Fracture Discharge Discharge Diagnosis / Problem: Left Periprosthetic Humerus Fracture Discharge Goals Goal(s): Decrease discomfort, Improve function Activity Recommendations Activity Limitations: per Instructions/Follow-up section Weightbearing Status: Left non-weightbearing . Instructions / Follow-Up Instructions / Follow-Up Daily dressing changes. Use 4x4 gauze to cover wound. No active range of motion of the left shoulder at this time. You may do elbow/ wrist exercises regularly as instructed by the hospital PT dept. Arm sling at all times except for when bathing or changing clothes. You may shower in 72 hours if you are having minimal drainage. (spotty) Do not soak the wound. No direct shower pressure to the wound. No tub baths. Follow up with Dr Hurley in 2 weeks from the day of surgery. Call for appointment. [phone] Follow up with your Primary Care Physician in 1 week. Current Hospital Diet Patient's current hospital diet: Diabetes Type 2 Diet Discharge Diet Recommended Diet: Diabetes Type 2 Diet Procedures Procedures Performed: Left Humerus Periprosthetic Fracture Open Reduction Internal Fixation Pending Studies Studies pending at discharge: no Laboratory Results Hemoglobin A1c Test 10/25/16 15:41 Range/Units Estimated Average Glucose 171 mg/dl Hemoglobin A1c 7.6 H 4.5-5.6 % Medical Emergencies . Who to Call and When: Medical Emergencies: If at any time you feel your situation is an emergency, please call 911 immediately. . Non-Emergent Contact Non-Emergency issues call your: Surgeon Call Non-Emergent contact if: temperature is above 101.5, your pain is not controlled, your pain is worsening, wound has increased drainage, wound has increased redness . "Provider Documentation" section prepared by Caleb Fong. . VTE Core Measure Inpt VTE Proph given/why not?: Karlie Smith, SCD's [place] Drug Monitoring Program Search Results: patient reviewed within database, no issues identified
[2016-10-29 12:14] VITALS: BP 106/62; PULSE 60; O2SAT 96
[2016-10-29] MEDS: OXYCODONE/ACETAMINOPHEN 5-325 TAB PO PRN (12:38)
[2016-10-29 13:01] VITALS: BP 106/62; PULSE 60; TEMP 36.6; O2SAT 96
--- NOTE | 2016-10-29 14:34 | Consultant Recommendations ---
Clinical Laboratory Manager Recommendations Date of Service Oct 29, 2016. Clinical Laboratory Manager Recommendations POD 1 s/p ORIF Left Periprosthetic Humerus Fx, medicine was consulted for post op management. Patient found to be hyperglycemic over the nigh time and placed on insulin drip. Since that time with downtrending glucose levels, patient off of insulin drip and last recorded POC glucose 196. Patient reports at home here blood sugars ranging from 150 to 200 while on metformin TID and Victoza and is following up with her primary medical doctor on whether she needs insulin at home. Will defer to patient's primary medical doctor for further glucose management as her most recent fingerstick glucose is in line with her normal pre -op glucose levels. In addition patient reports history of TIA and has been on aspirin at home. Recommended to patient to restart aspirin tomorrow after her planned discharged from orthopedic service today. Physical Exam: General: no acute distress HEENT: atraumatic, EOMI, normal oropharynx Lungs CTABL Heart: RRR Abdomen: soft, nontender, + bowel sounds Extremities: left arm in sling, no lower extremity edema Disposition: discharged home as per orthopedics.
[2016-10-30] MEDS ORDERED: VANCOMYCIN INJ 1,000 MG in SODIUM CHLORIDE 0.9% 250ML 250 ML IV SCH ×2
[2016-11-01] MEDS ORDERED: VANCOMYCIN TROUGH ONE (05:30)
--- NOTE | 2016-11-01 09:02 | Discharge Summary ---
Orthopedic Discharge Summary Admission Date/Reason Oct 28, 2016 at 17:10 Left Gladis Prosthetic Humerus Fracture. Discharge Date/Disposition Oct 29, 2016 Home Diagnosis Principal Diagnosis: S/P Left ORIF Periprosthetic humerus fracture Medication Reconciliation As per discharge instructions Admission Physical Exam As per Admitting History & Physical. Hospital Course Patient was feeling well POD #1. She denied any complaints. Her discharge plan was to be home with self care as long as medicine stated she was stable. Discharge Instructions Please refer to the electronic Patient Visit Report (Discharge Instructions) for additional information.
== END 2016-10-29 14:45 | disposition home or self-care (01) | DRG 493 ==
LOC: C.ACU 09:16 → C.3E 17:10 → ENRESERV 17:49
PROVIDERS: ADMIT Orthopaedic Surgery; ATTEND Orthopaedic Surgery
PROC: 0PSG04Z Reposition Left Humeral Shaft with Internal Fixation Device, Open Approach (ICD-10-PCS; principal; 2016-10-28 13:30)
DX: S42.392A Other fracture of shaft of left humerus, initial encounter for closed fracture (principal); M97.32XA Periprosthetic fracture around internal prosthetic left shoulder joint, initial encounter; I10 Essential (primary) hypertension; J45.909 Unspecified asthma, uncomplicated; J44.9 Chronic obstructive pulmonary disease, unspecified; G47.30 Sleep apnea, unspecified; F41.9 Anxiety disorder, unspecified; E03.9 Hypothyroidism, unspecified; K21.9 Gastro-esophageal reflux disease without esophagitis; E13.65 Other specified diabetes mellitus with hyperglycemia; Z79.84 Long term (current) use of oral hypoglycemic drugs; G47.33 Obstructive sleep apnea (adult) (pediatric); E87.6 Hypokalemia; E83.42 Hypomagnesemia; W19.XXXA Unspecified fall, initial encounter